=== PATIENT | female | born 1965 | race Caucasian/White ===

== ENCOUNTER 2016-09-23 08:09 | Emergency (ER) | payer BC ==
[2016-09-23] MEDS ORDERED: Ondansetron INJ* 2 MG/ML VIAL IV ONE (08:44)
[2016-09-23] MEDS ORDERED: NS 0.9% 1000 ML* 2,000 ML IV ONE (08:44)
[2016-09-23 08:56] LABS: Hematocrit 44 % (35-47); Hemoglobin 14.6 g/dl (12.0-16.0); Mean Corpuscular HGB Conc 33 g/dl (31-36); Mean Corpuscular Hemoglobin 31 pg (27-31); Mean Corpuscular Volume 94 fL (80-97); Mean Platelet Volume 8 um3 (7.4-10.4); Red Blood Count 4.67 10^6/ul (4.0-5.4); Red Cell Distribution Width 16 % (10.5-15); White Blood Count 8.2 10^3/ul (3.5-10.8)
[2016-09-23 09:09] LABS: ALT 8 U/L (7-52); AST 16 U/L (13-39); Albumin 3.8 g/dL (3.2-5.2); Alkaline Phosphatase 61 U/L (34-104); Anion Gap 3 mmol/L (2-11); BUN/Creatinine Ratio 13.3 (8-20); Blood Urea Nitrogen 8 mg/dL (6-24); C Reactive Protein < 1.00 mg/L (< 5.00); CO2 Carbon Dioxide 26 mmol/L (22-32); Calcium 8.8 mg/dL (8.6-10.3); Chloride 106 mmol/L (101-111); Globulin 2.7 g/dL (2-4); Glucose 89 mg/dL (70-100); Lipase 35 U/L (11.0-82.0); Potassium 4.1 mmol/L (3.5-5.0); Sodium 135 mmol/L (133-145); Total Protein 6.5 g/dL (6.4-8.9)
[2016-09-23] MEDS ORDERED: Iodixanol* (CONTRAST) 320 MG/ML 100 ML SDV IV ONE (09:18)
--- NOTE | 2016-09-23 10:18 | RAD ---
CLINICAL HISTORY: Epigastric pain COMPARISON: None TECHNIQUE: Multiple contiguous axial CT scans were obtained of the abdomen and pelvis after the administration of intravenous contrast. Coronal and sagittal multiplanar reformations are submitted for review. Oral contrast was administered. Delayed images were obtained through the abdomen and pelvis. FINDINGS: LUNG BASES: The lung bases are clear. LIVER: The liver is diffusely low in attenuation compared to the spleen. There are no focal hepatic parenchymal masses. BILE DUCTS: There is no intrahepatic or extrahepatic biliary dilatation. GALLBLADDER: The gallbladder is normal, without pericholecystic inflammatory change. PANCREAS: The pancreas is normal, without mass or ductal dilatation. SPLEEN: Normal in size and appearance. UPPER GI TRACT: Evaluation of the gastrointestinal tract is limited by incomplete gastric distention. There is postsurgical change to the upper GI tract. SMALL BOWEL AND MESENTERY: The patient appears to be status post jejunojejunostomy with a patulous loop of small bowel at the area of anastomosis of the left upper quadrant. Elsewhere, the small bowel is unremarkable without findings to suggest obstruction. COLON: The colon is normal in contour, course, caliber. There is no pericolonic inflammatory change. There is a tubular, vermiform, hollow viscus that is blind ending, and originates from the cecum, consistent with a normal appendix. There is no periappendiceal inflammatory change. ADRENALS: Normal bilaterally. KIDNEYS: The kidneys are normal in shape, size, contour, and axis. There is no hydronephrosis or nephrolithiasis. BLADDER: The bladder is smooth in contour. PELVIC ORGANS: The uterus and adnexa are grossly normal for technique. AORTA: The aorta is normal. IVC: Unremarkable LYMPH NODES: There is no lymphadenopathy by size criteria. ABDOMINAL WALL: There is no evidence for abdominal wall hernia. BONES AND SOFT TISSUES: Degenerative changes are noted along the spine OTHER: None IMPRESSION: POSTSURGICAL CHANGE. FATTY LIVER. NO ACUTE CT PATHOLOGY OF THE VISUALIZED PORTION OF THE ABDOMEN AND PELVIS
[2016-09-23 11:24] LABS: Urine Bacteria Absent (Absent); Urine Bilirubin Negative (Negative); Urine Glucose Negative (Negative); Urine Nitrite Negative (Negative)
--- NOTE | 2016-09-23 12:59 | ED ---
Charlette Bowie Claudia, scribed for Jon Smith MD on 09/23/16 at 0817 . Complex/Multi-Sys Presentation - HPI Summary HPI Summary: 51 year old female presents to the ED with abd pain of 4/10 and N/V. Pt notes gradual onset yesterday 09/22/16. She notes intermittent Sx of abd cramping/pain in the epigastrium with NV. She denies fever, chills but admits to decreased oral intake due to pain. Pt notes eating and bouts of emesis aggravate abd pain.. PMHx of Gastric Bypass 4 years ago is noted. Pt notes that she tried to eat yesterday afternoon around 1700 and had a bout of emesis shortly after. Pt notes that she had an appetite yesterday evening but has been unable to eat without emesis. She also notes additional burping since yesterday pm. She notes nml yesterday am and nml BM yesterday but none last night or this am. She also admits to minimal gas distally. PSHx: Tubal Ligation - History Of Current Complaint Chief Complaint: EDAbdPain Time Seen by Provider: 09/23/16 08:15 Hx Obtained From: Patient Onset/Duration: Gradual Onset - since yesterday 09/22/16, Lasting Days Timing: Constant Associated Signs And Symptoms: Positive: Nausea, Vomiting, Abdominal Pain, Decreased Oral Intake - Allergies/Home Medications Allergies/Adverse Reactions: Allergies Allergy/AdvReac Type Severity Reaction Status Date / Time seafood Allergy Mild Rash Uncoded 09/23/16 09:02 PMH/Surg Hx/FS Hx/Imm Hx Previously Healthy: Yes Endocrine/Hematology History: Denies: Hx Diabetes Cardiovascular History: Denies: Hx Myocardial Infarction - Surgical History Surgery Procedure, Year, and Place: Gastric Bypass - 4 years ago [facility] [place] Tubal Ligation Infectious Disease History: Denies: Traveled Outside the [place] in Last 30 Days - Family History Known Family History: Positive: Cardiac Disease, Hypertension Family History: COPD - Social History Occupation: Unemployed Lives: With Family Alcohol Use: Rare Substance Use Type: Reports: None Review of Systems Constitutional: Other - decreased oral intake Negative: Fever, Chills Eyes: Negative ENT: Negative Cardiovascular: Negative Respiratory: Negative Positive: Abdominal Pain, Vomiting, Nausea Genitourinary: Negative Musculoskeletal: Negative Skin: Negative Neurological: Negative Psychological: Normal All Other Systems Reviewed And Are Negative: Yes Physical Exam Triage Information Reviewed: Yes Vital Signs On Initial Exam: Initial Vitals Temp Pulse Resp BP Pulse Ox 97.7 F 55 20 114/66 99 09/23/16 08:10 09/23/16 08:10 09/23/16 08:10 09/23/16 08:10 09/23/16 08:10 Vital Signs Reviewed: Yes Appearance: Positive: Pain Distress - mild-moderate pain distress. Negative: Well-Appearing - mildly ill-appearing Skin: Positive: Warm, Skin Color Reflects Adequate Perfusion, Dry Head/Face: Positive: Normal Head/Face Inspection Eyes: Positive: EOMI, ANGELITO ENT: Positive: Normal ENT inspection Neck: Positive: Supple, Nontender Respiratory/Lung Sounds: Positive: Clear to Auscultation, Breath Sounds Present Cardiovascular: Positive: RRR Abdomen Description: Positive: Soft. Negative: Nontender - tender at the epigastrium Bowel Sounds: Positive: Present - high pitched bowel sounds Musculoskeletal: Positive: Normal, Strength/ROM Intact Neurological: Positive: Normal, Sensory/Motor Intact, Alert, Oriented to Person Place, Time Psychiatric: Positive: Affect/Mood Appropriate Diagnostics - Vital Signs Vital Signs Temp Pulse Resp BP Pulse Ox 09/23/16 08:10 97.7 F 55 20 114/66 99 - Laboratory Lab Results: Lab Results 09/23/16 09/23/16 09/23/16 Range/Units 08:35 08:35 08:35 WBC 8.2 (3.5-10.8) 10^3/ul RBC 4.67 (4.0-5.4) 10^6/ul Hgb 14.6 (12.0-16.0) g/dl Hct 44 (35-47) % MCV 94 (80-97) fL MCH 31 (27-31) pg MCHC 33 (31-36) g/dl RDW 16 H (10.5-15) % Plt Count 203 (150-450) 10^3/ul MPV 8 (7.4-10.4) um3 Neut % (Auto) 67.1 (38-83) % Lymph % (Auto) 21.2 L (25-47) % Crane % (Auto) 7.1 (1-9) % Eos % (Auto) 3.3 (0-6) % Baso % (Auto) 1.3 (0-2) % Absolute Neuts (auto) 5.5 (1.5-7.7) 10^3/ul Absolute Lymphs (auto) 1.8 (1.0-4.8) 10^3/ul Absolute Monos (auto) 0.6 (0-0.8) 10^3/ul Absolute Eos (auto) 0.3 (0-0.6) 10^3/ul Absolute Basos (auto) 0.1 (0-0.2) 10^3/ul Absolute Nucleated RBC 0.01 10^3/ul Nucleated RBC % 0.1 INR (Anticoag Therapy) 0.90 (0.89-1.11) APTT 29.1 (26.0-36.3) seconds Sodium 135 (133-145) mmol/L Potassium 4.1 (3.5-5.0) mmol/L Chloride 106 (101-111) mmol/L Carbon Dioxide 26 (22-32) mmol/L Anion Gap 3 (2-11) mmol/L BUN 8 (6-24) mg/dL Creatinine 0.60 (0.51-0.95) mg/dL Est GFR ( Amer) 135.0 (>60) Est GFR (Non-Af Amer) 105.0 (>60) BUN/Creatinine Ratio 13.3 (8-20) Glucose 89 (70-100) mg/dL Lactic Acid (0.5-2.0) mmol/L Calcium 8.8 (8.6-10.3) mg/dL Total Bilirubin 0.40 (0.2-1.0) mg/dL AST 16 (13-39) U/L ALT 8 (7-52) U/L Alkaline Phosphatase 61 (34-104) U/L Troponin I 0.00 (<0.04) ng/mL C-Reactive Protein < 1.00 (< 5.00) mg/L Total Protein 6.5 (6.4-8.9) g/dL Albumin 3.8 (3.2-5.2) g/dL Globulin 2.7 (2-4) g/dL Albumin/Globulin Ratio 1.4 (1-3) Lipase 35 (11.0-82.0) U/L Urine Color Urine Appearance Urine pH (5-9) Ur Specific [place] (1.010-1.030) Urine Protein (Negative) Urine Ketones (Negative) Urine Blood (Negative) Urine Nitrate (Negative) Urine Bilirubin (Negative) Urine Urobilinogen (Negative) Ur Leukocyte Esterase (Negative) Urine WBC (Auto) (Absent) Urine RBC (Auto) (Absent) Ur Squamous Epith Cells (Absent) Urine Bacteria (Absent) Urine Glucose (Negative) 09/23/16 09/23/16 Range/Units 08:35 11:10 WBC (3.5-10.8) 10^3/ul RBC (4.0-5.4) 10^6/ul Hgb (12.0-16.0) g/dl Hct (35-47) % MCV (80-97) fL MCH (27-31) pg MCHC (31-36) g/dl RDW (10.5-15) % Plt Count (150-450) 10^3/ul MPV (7.4-10.4) um3 Neut % (Auto) (38-83) % Lymph % (Auto) (25-47) % Crane % (Auto) (1-9) % Eos % (Auto) (0-6) % Baso % (Auto) (0-2) % Absolute Neuts (auto) (1.5-7.7) 10^3/ul Absolute Lymphs (auto) (1.0-4.8) 10^3/ul Absolute Monos (auto) (0-0.8) 10^3/ul Absolute Eos (auto) (0-0.6) 10^3/ul Absolute Basos (auto) (0-0.2) 10^3/ul Absolute Nucleated RBC 10^3/ul Nucleated RBC % INR (Anticoag Therapy) (0.89-1.11) APTT (26.0-36.3) seconds Sodium (133-145) mmol/L Potassium (3.5-5.0) mmol/L Chloride (101-111) mmol/L Carbon Dioxide (22-32) mmol/L Anion Gap (2-11) mmol/L BUN (6-24) mg/dL Creatinine (0.51-0.95) mg/dL Est GFR ( Amer) (>60) Est GFR (Non-Af Amer) (>60) BUN/Creatinine Ratio (8-20) Glucose (70-100) mg/dL Lactic Acid 0.4 L (0.5-2.0) mmol/L Calcium (8.6-10.3) mg/dL Total Bilirubin (0.2-1.0) mg/dL AST (13-39) U/L ALT (7-52) U/L Alkaline Phosphatase (34-104) U/L Troponin I (<0.04) ng/mL C-Reactive Protein (< 5.00) mg/L Total Protein (6.4-8.9) g/dL Albumin (3.2-5.2) g/dL Globulin (2-4) g/dL Albumin/Globulin Ratio (1-3) Lipase (11.0-82.0) U/L Urine Color Yellow Urine Appearance Clear Urine pH 7.0 (5-9) Ur Specific [place] 1.006 L (1.010-1.030) Urine Protein Negative (Negative) Urine Ketones Negative (Negative) Urine Blood 3+ H (Negative) Urine Nitrate Negative (Negative) Urine Bilirubin Negative (Negative) Urine Urobilinogen Negative (Negative) Ur Leukocyte Esterase Negative (Negative) Urine WBC (Auto) Absent (Absent) Urine RBC (Auto) 3+(>10/hpf) H (Absent) Ur Squamous Epith Cells Present H (Absent) Urine Bacteria Absent (Absent) Urine Glucose Negative (Negative) Result Diagrams: 09/23/16 08:35 09/23/16 08:35 Lab Statement: Any lab studies that have been ordered have been reviewed, and results considered in the medical decision making process. - CT CT ABD/PELVIS CT Interpretation: No Acute Changes - POSTSURGICAL CHANGE. FATTY LIVER. NO ACUTE CT PATHOLOGY OF THE VISUALIZED PORTION OF THE ABDOMEN AND PELVIS CT Interpretation Completed By: Radiologist Complex Multi-Symp Course/Dx Course Of Treatment: NO CRITICAL CARE TIME. Assessment/Plan: IMPROVED IN ED. SURGERY/DR RENEE SAW PATIENT IN ED. DISACHARGE HOME STABLE. - Diagnoses Provider Diagnoses: Abdominal pain, Vomiting - Physician Notifications Discussed Care Of Patient With: Dr. Renee recommends a CT ABD with contrast. Post CT and evaluation of the pt surgery recommends trying chau-derek and crackers. Surgery mid-level checks in with pt and informs pt and family of plan. Time Discussed With Above Provider: 08:46 Discharge - Discharge Plan Condition: Stable Disposition: HOME Patient Education Materials: Abdominal Pain (ED) Referrals: Fazal Marquez MD [Primary Care Provider] - Camilo Sousa MD [Medical Doctor] - Additional Instructions: FOLLOW UP WITH YOUR DOCTOR. RETURN TO THE EMERGENCY DEPARTMENT FOR ANY WORSENING OF YOUR CONDITION; PAIN, FEVER, VOMITING, YOU FEEL ILL OR QUESTIONS OR CONCERNS. The documentation as recorded by the Charlette allred Claudia accurately reflects the service I personally performed and the decisions made by me, Jon Smith MD.
[2016-09-23 13:11] VITALS: BP 119/68
--- NOTE | 2016-09-23 19:26 | CONS ---
CONSULTATION REPORT: DATE OF CONSULT: 09/23/16 PATIENT OF: Dr. Michel Orozco (dictated by ANNIE Daniels). CONSULTED BY: Dr. Jon Smith. CONSULTED TO: Dr. Michel Orozco. CHIEF COMPLAINT: 1. Epigastric pain. 2. Nausea and vomiting. HISTORY OF PRESENT ILLNESS: Ms. Cadet is a pleasant 51-year-old female, who presented to the emergency room earlier this morning with complaints of epigastric abdominal pain since last night. She notes that her pain started approximately at 6 o'clock yesterday that was gradual in onset, but has gotten progressively worse as the night went. She has never had similar complaints in the past. She described it as an intermittent episode of abdominal cramping, with sharp, stabbing periods as well with associated nausea and vomiting. She had a muffin that she bought from work yesterday evening after which she immediately experienced some abdominal discomfort followed by nausea and vomiting. Two hours later, she tried to eat dinner, but unfortunately she experienced the same symptoms and was unable to keep it down. She did not eat or drink anything the remainder of the night. She got up this morning and she tried to eat some breakfast, but unfortunately she experienced the same symptoms and throwing up as well for which she went to the emergency room for further evaluation. She described it as dull aching pain, localized to the epigastric and left upper quadrant area with no radiation of pain or any other associated symptoms. The patient is known to our practice from prior laparoscopic Hammad-en-Y gastric bypass that was done approximately [address] Sousa. The patient has done very well since her bypass losing approximately 75 pounds. She has been relatively healthy prior to her episode of abdominal pain with nausea and vomiting last night. She described only some issues with anemia for which she had extensive evaluation last fall including an EGD that failed to reveal any evidence of GI bleeding or peptic ulcer disease. She denies any NSAIDs intake or history of peptic ulcer disease. As a matter of fact, the patient has been maintained on proton pump inhibitors, since her surgery, given her known history of GERD. She has been on iron supplement since her diagnosis was anemia last fall and denies any fatigue, chest pain, or shortness of breath. She admits to her abdominal pain, but denies any fever, chills, or recent changes in the bowel habits or bleeding per rectum. Given her ongoing symptoms, she went this morning to the emergency room for further evaluation. She had laboratory workup and CT scan of the abdomen and pelvis that revealed no apparent internal hernia or any other abnormalities. We were asked to see the patient for further evaluation regarding her abdominal pain. PAST MEDICAL HISTORY: Significant for GERD as well as an anxiety. PAST SURGICAL HISTORY: Significant for laparoscopic Hammad-en-Y gastric bypass approximately 4 years ago, as well as tubal ligation in the remote past. CURRENT MEDICATIONS: Her current medications at home include: 1. Omeprazole 40 mg p.o. daily. 2. Venlafaxine 75 mg p.o. daily. ALLERGIES: She denies any drug allergies; however, she cannot tolerate any sea foods. FAMILY HISTORY: She denies any family history of GI malignancies. SOCIAL HISTORY: The patient is a nonsmoker. Denies alcohol intake and caffeine intake is minimal. 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 REVIEW OF SYSTEMS: See HPI, otherwise negative. She denies any headache, dizziness, or blurred vision. No chest pain, shortness of breath, palpitation, or orthopnea. No fever, chills, or recent weight loss. She admits to epigastric abdominal pain with associated nausea and vomiting, but denies any jaundice, changes in the color of stool or urine, or bleeding per rectum. No flank pain, dysuria, hematuria, or urinary frequency. PHYSICAL EXAM: General: She is a pleasant, healthy-appearing middle-aged female, in no acute distress or discomfort at the time of consultation. Vitals : Her last set of vitals revealed temperature of 97.7, blood pressure of 112/72 , respirations of 20, pulse of 52, and O2 sat is 100% on room air. HEENT: Sclerae anicteric, PERRLA. EOMs intact. Oropharynx is pink and moist with no exudate. Neck: Supple. Trachea midline. No cervical adenopathy or thyromegaly. Lungs: Clear to auscultation bilaterally. Heart: Regular rate and rhythm. Normal S1 and S2 without rubs, murmurs, or gallops. Back: With normal curvature. No CVA tenderness. Breast Exam: Deferred at this time. Abdomen: Soft and nondistended. There is very mild epigastric and left upper quadrant tenderness on deep palpation. There is no guarding, rigidity, or rebound tenderness noted. No hernias, masses, or hepatosplenomegaly. Old scars from prior Hammad-en-Y bypass surgery noted and well healed. Extremities: Without cyanosis, clubbing, or edema. Neurologic: Grossly intact. Rectal Exam : Deferred at this time. LABORATORY DATA: CBC during her ED stay this morning with white count of 8200, hemoglobin 14.6, hematocrit 44, and platelets of 203. Chemistry with sodium of 135, potassium of 4.1, chloride 106, CO2 26, BUN of 8, creatinine of 0.6, glucose of 89. Her lactic acid was 0.4. Her LFTs and lipase were all within normal limits. ACCESSORY DIAGNOSTIC DATA: The patient had a CT scan of the abdomen and pelvis this morning that revealed no acute pathology of the visualized portion of the abdomen and pelvis. ASSESSMENT: A 51-year-old female, status post laparoscopic Hammad-en-Y gastric bypass 4 years ago, who presents to the emergency room today with less than 24 hours' period of intermittent epigastric pain, nausea, and vomiting with food consumption. PLAN: At the time of consultation, the patient appears to be very comfortable on her bed in the ED. I went on and discussed with her the findings of her labs , CT scan, and physical exam. She appears to be doing well and there was no evidence of any acute abdomen or any abnormality at this time. I suspect that she had some sort of gastroenteritis or viral enteritis given her food intake that led to her symptoms to begin with. I discussed the case with Dr. Orozco and we will give her a trial of liquid diet during her ED stay. If she is able to tolerate liquid diet and crackers down, we will likely discharge her home on some Zofran to use as needed for nausea. I also advised her to take it easy on her diet and to follow bland diet rules for the next 2 days until she feels better. She was also encouraged to return if she felt any worse and otherwise, she will follow up with Dr. Sousa next week in the office as an outpatient. Again, there was no evidence of any acute abdomen or surgical issues at this time. We will follow her up accordingly. ADDENDUM: I have personally visited patient in ED. I have reviewed the CT scan and examined patient. I have discussed situation with her, and feel she is safe for discharge, but will call immediately if anything is amiss. D/W Dr Sousa. Any Orozco MD ANNIE DANIELS CC: Dr. Fazal Marquez; Dr. Camilo Sousa* [id number]/[facility] #: [id number] [facility]
== END 2016-09-23 13:10 | disposition home or self-care (01) ==
LOC: ED 08:09
DX: R10.13 Epigastric pain (principal); R11.2 Nausea with vomiting, unspecified; Z98.84 Bariatric surgery status; K21.9 Gastro-esophageal reflux disease without esophagitis; F41.9 Anxiety disorder, unspecified
CPT/HCPCS: 36415; 74177; 80053; 81003; 81015; 83605; 83690; 84484; 85025; 85610; 85730; 86140; 86803; 96360; 96374; 99283; J2405; Q9967

== ENCOUNTER → 2016-10-26 18:16 | Emergency (ER) | payer BC ==
[~2016-10-26 18:16] MED LIST: Iodixanol* (CONTRAST) 320 MG/ML 100 ML SDV IV ONE; NS 0.9% 1000 ML* 1,000 ML IV ONE
[2016-10-26 21:34] LABS: Hematocrit 49 % (35-47); Hemoglobin 15.9 g/dl (12.0-16.0); Mean Corpuscular HGB Conc 33 g/dl (31-36); Mean Corpuscular Hemoglobin 31 pg (27-31); Mean Corpuscular Volume 95 fL (80-97); Mean Platelet Volume 8 um3 (7.4-10.4); Red Blood Count 5.09 10^6/ul (4.0-5.4); Red Cell Distribution Width 15 % (10.5-15); White Blood Count 8.7 10^3/ul (3.5-10.8)
[2016-10-26 21:50] LABS: Albumin 4.2 g/dL (3.2-5.2); BUN/Creatinine Ratio 17.8 (8-20); Calcium 8.8 mg/dL (8.6-10.3); EGFR African American 107.7 (>60); EGFR Non-African American 83.7 (>60); Globulin 3.4 g/dL (2-4); Potassium 3.5 mmol/L (3.5-5.0); Total Bilirubin 0.3 mg/dL (0.2-1.0); Total Protein 7.6 g/dL (6.4-8.9)
--- NOTE | 2016-10-26 22:34 | RAD ---
INDICATION: Left upper quadrant pain. COMPARISON: CT abdomen pelvis 2016 TECHNIQUE: Axial source images were obtained from the hemidiaphragms to the symphysis pubis following administration of oral and intravenous contrast. 92 mL Omnipaque 300 was utilized. Coronal and sagittal reconstructed images were acquired. Lung bases: The lung bases are clear. Liver: The liver is mildly generous in size and there is mild hepatic steatosis. There are no masses. There is no ductal dilatation. Gallbladder: There are no calcified gallstones. There is no evidence of wall thickening or pericholecystic fluid. Spleen: The spleen is normal in size. There are no masses. Pancreas: There is no focal pancreatic mass or ductal dilatation. Adrenal glands: There is no evidence of adrenal mass. Kidneys: The kidneys are normal in size and position. There are prompt nephrograms and there is prompt excretion bilaterally. There are no renal parenchymal masses. There is no evidence of nephrolithiasis. Adenopathy: There is no evidence of adenopathy by size criteria. Fluid collections: There are no free or localized fluid collections. Vessels:There are no significant atherosclerotic changes involving the aorta. There is no focal aneurysm. The iliac vessels are normal in caliber. The IVC appears normal. GI tract: There are no acute CT bowel findings. There is no obstruction. There is bariatric surgery. The stomach and small bowel otherwise appear normal. The lower GI tract is normal. The cecum, ileocecal valve, and terminal ileum appear normal. The appendix is visualized and appear normal. Pelvic organs: The uterus and adnexa appear normal Bladder: There are no bladder masses. Abdominal and pelvic soft tissues: The extraperitoneal abdominal and pelvic soft tissues appear normal.. Osseous structures: There are no acute osseous findings. Other: None IMPRESSION: GASTRIC BYPASS. NO ACUTE FINDINGS.
[2016-10-27 00:55] VITALS: BP 106/57
--- NOTE | 2016-10-27 05:47 | ED ---
I, Oh,Renetta, scribed for Maurizio Carroll MD on 10/26/16 at 2037 . Abdominal Pain/Female - HPI Summary HPI Summary: This 51 y/o female presents to ED for burning epigastric pain since 2 days ago. Pain radiates to back. Pt specifies that the pain is located over gastric bypass incision over left epigastric region, and reports chronic abdominal "bulge" around epigastric region. Lifting things make pain worse. Negative black bowel movement. Pt currently takes iron. The abd procedure Rou-en-Y was done by Dr. Sousa in August 2011. PMHx includes DM type II, ALVA with CPAP, and thyroid disease. - History of Current Complaint Chief Complaint: EDAbdPain Stated Complaint: LUMP ON ABD Time Seen by Provider: 10/26/16 19:59 Hx Obtained From: Patient, Medical Records Onset/Duration: Sudden Onset, Resolved Timing: Constant Pain Intensity: 0 Pain Scale Used: 0-10 Numeric Location: Discrete At: LUQ, Epigastric Radiates: Yes Radiates to: Back Character: Burning Aggravating Factor(s): Movement - lifting Alleviating Factor(s): Position, Other: - rest Associated Signs and Symptoms: Negative: Fever, Nausea, Vomiting, Diarrhea Allergies/Adverse Reactions: Allergies Allergy/AdvReac Type Severity Reaction Status Date / Time seafood Allergy Mild Rash Uncoded 09/23/16 09:02 PMH/Surg Hx/FS Hx/Imm Hx Endocrine/Hematology History: Denies: Hx Diabetes Cardiovascular History: Denies: Hx Hypertension, Hx Myocardial Infarction - Surgical History Surgery Procedure, Year, and Place: Gastric [place] [facility] [place] Infectious Disease History: No Infectious Disease History: Denies: Traveled Outside the [place] in Last 30 Days - Family History Known Family History: Positive: Cardiac Disease, Hypertension Family History: COPD - Social History Alcohol Use: Rare Hx Substance Use: No Substance Use Type: Reports: None Hx Tobacco Use: Yes Smoking Status (MU): Heavy Every Day Tobacco Smoker Review of Systems Negative: Fever Negative: Photophobia, Erythema Negative: Sore Throat Negative: Palpitations, Chest Pain Negative: Shortness Of Breath, Cough Positive: Abdominal Pain - epigastric pain, left sided. Negative: Vomiting, Diarrhea, Nausea Negative: dysuria, hematuria Negative: Arthralgia, Myalgia Negative: Rash Neurological: Other - Negative for dizziness Negative: Headache Negative: Anxious, Depressed All Other Systems Reviewed And Are Negative: Yes Physical Exam - Summary Physical Exam Summary: Constitutional: Well-developed, Well-nourished, Alert. (-) Distressed Skin: Warm, Dry. Incision noted over LUQ. HENT: Normocephalic; Atraumatic Eyes: Conjunctiva normal Neck: Musculoskeletal ROM normal neck. (-) JVD, (-) Stridor, (-) Tracheal deviation Cardio: Rhythm regular, rate normal, Heart sounds normal; Intact distal pulses; The pedal pulses are 2+ and symmetric. Radial pulses are 2+ and symmetric. (-) Murmur Pulmonary/Chest wall: Effort normal. (-) Respiratory distress, (-) Wheezes, (-) Rales Abd: Soft, (-) Tenderness, (-) Distension, (-) Guarding, (-) Rebound. (-) Hernia palpated. Musculoskeletal: (-) Edema Lymph: (-) Cervical adenopathy Neuro: Alert, Oriented x3 Psych: Mood and affect Normal Triage Information Reviewed: Yes Vital Signs On Initial Exam: Initial Vitals Temp Pulse Resp BP Pulse Ox 98.0 F 65 16 113/64 98 10/26/16 18:51 10/26/16 18:51 10/26/16 18:51 10/26/16 18:51 10/26/16 18:51 Vital Signs Reviewed: Yes Diagnostics - Vital Signs Vital Signs Temp Pulse Resp BP Pulse Ox 10/26/16 20:07 98 F 65 16 113/64 98 10/26/16 18:51 98.0 F 65 16 113/64 98 - Laboratory Result Diagrams: 10/26/16 21:20 10/26/16 21:20 Lab Statement: Any lab studies that have been ordered have been reviewed, and results considered in the medical decision making process. - CT Ab/P CT Interpretation: No Acute Changes - Gastric bypass. No acute finding. CT Interpretation Completed By: Radiologist Re-Evaluation - Re-Evaluation First Eval Re-Evaluation Time: 23:18 Comment: in room to share CT scan results. Plan of care is discussed. Pt is strongly advised to follow up post-op with surgeon to r/o any possible complication after gastric bypass. Abdominal Pain Fem Course/Dx - Course Course Of Treatment: Dx: incision pain. Not able to reproduce the hernia. Do not suspect calcerated and strangulated hernia. not able to valsalva, - Diagnoses Provider Diagnoses: Incisional pain, Abdominal pain - Provider Notifications Discussed Care Of Patient With: Dr. Ruiz (Surgery) paged at 0024 AM Discharge - Discharge Plan Condition: Stable Disposition: HOME Patient Education Materials: Abdominal Pain (ED) Referrals: Fazal Marquez MD [Primary Care Provider] - Laura Ruiz MD [Medical Doctor] - 2 Days Additional Instructions: RETURN TO THE EMERGENCY DEPARTMENT FOR CHANGING OR WORSENING SYMPTOMS. The documentation as recorded by the [facility] allred Soohyun accurately reflects the service I personally performed and the decisions made by , Maurizio Carroll MD.
== END | disposition home or self-care (01) ==
LOC: ED 18:16
DX: T81.89XA Other complications of procedures, not elsewhere classified, initial encounter (principal); R10.13 Epigastric pain; E11.9 Type 2 diabetes mellitus without complications; G47.33 Obstructive sleep apnea (adult) (pediatric); F17.200 Nicotine dependence, unspecified, uncomplicated; Z98.84 Bariatric surgery status
CPT/HCPCS: 36415; 74177; 80053; 83605; 85027; 96360; 99282; Q9967

== ENCOUNTER 2017-01-25 19:58 | Emergency (ER) | payer BC ==
[2017-01-25 20:06] VITALS: BP 102/65
--- NOTE | 2017-01-25 20:23 | UC ---
Lower Extremity/Ankle HPI - HPI Summary HPI Summary: left leg pain, no trauma, began today radiates through calf and up to thigh--- - History of Current Complaint Chief Complaint: UCLowerExtremity Stated Complaint: FOOT PAIN Time Seen by Provider: 01/25/17 20:15 Hx Obtained From: Patient Hx Last Menstrual Period: 01/19/17 ?: No Onset/Duration: Sudden Onset, Lasting Hours, Still Present Severity Initially: Moderate Severity Currently: Moderate Pain Intensity: 6 Pain Scale Used: 0-10 Numeric Aggravating Factor(s): Standing, Ambulation Alleviating Factor(s): Nothing Able to Bear Weight: Yes - Allergies/Home Medications Allergies/Adverse Reactions: Allergies Allergy/AdvReac Type Severity Reaction Status Date / Time seafood Allergy Mild Rash Uncoded 01/25/17 20:06 Home Medications: Home Medications ALPRAZolam TAB* [Xanax TAB*] 0.25 mg PO Q6H PRN 01/25/17 [History Confirmed ] Ascorbic Acid [Vitamin C] 250 mg PO 01/25/17 [History] Multivit-Min W/Fe-FA [ and Iron] 1 tab PO 01/25/17 [History] PMH/Surg Hx/FS Hx/Imm Hx Previously Healthy: No Endocrine History: Diabetes GI/ History: Gastroesophageal Reflux Psychological History: Depression - Surgical History Surgical History: Yes Surgery Procedure, Year, and Place: Gastric Bypass - 4 years ago [facility]. Tubal Ligation - Family History Known Family History: Positive: Cardiac Disease, Hypertension Family History: COPD - Social History Occupation: Employed Full-time Lives: With Family Alcohol Use: Rare Substance Use Type: None Smoking Status (MU): Heavy Every Day Tobacco Smoker Type: Cigarettes Amount Used/How Often: 1 1/2 ppd Have You Smoked in the Last Year: Yes Review of Systems Constitutional: Negative Skin: Negative Eyes: Negative ENT: Negative Respiratory: Negative Cardiovascular: Negative Gastrointestinal: Negative Genitourinary: Negative Motor: Negative Neurovascular: Negative Musculoskeletal: Negative, Myalgia - left calf and thigh Neurological: Negative Psychological: Negative All Other Systems Reviewed And Are Negative: Yes Physical Exam Triage Information Reviewed: Yes Appearance: Well-Appearing, No Pain Distress, Well-Nourished Vital Signs: Initial Vital Signs Temp 97.7 F 01/25/17 20:01 Pulse 76 01/25/17 20:01 Resp 18 01/25/17 20:01 BP 102/65 01/25/17 20:01 Pulse Ox 99 01/25/17 20:01 Vital Signs Reviewed: Yes Eye Exam: Normal Eyes: Positive: Conjunctiva Clear ENT Exam: Normal ENT: Positive: Normal ENT inspection, Hearing grossly normal. Negative: Nasal congestion, Nasal drainage, Trismus, Muffled/hoarse voice Dental Exam: Normal Neck exam: Normal Neck: Positive: 1 Respiratory Exam: Normal Respiratory: Positive: Chest non-tender, Lungs clear, Normal breath sounds, No respiratory distress, No accessory muscle use Cardiovascular Exam: Normal Cardiovascular: Positive: RRR, No Murmur, Pulses Normal, Brisk Capillary Refill Musculoskeletal Exam: Normal Musculoskeletal: Positive: Strength Intact, ROM Intact, No Edema Neurological Exam: Normal Neurological: Positive: Alert, Muscle Tone Normal Psychological Exam: Normal Skin Exam: Normal Lower Extremity Course/Dx - Course Course Of Treatment: to ed emergency department fo further evaluation - Differential Dx/Diagnosis Differential Diagnosis/HQI/PQRI: Contusion, Gout Provider Diagnoses: left leg pain Discharge - Discharge Plan Condition: Stable Disposition: HOME Patient Education Materials: How to Stop Smoking (ED), Leg Pain (ED) Referrals: Fazal Marquez MD [Primary Care Provider] - Additional Instructions: We recommend that you go to the emergency department for further evaluation of a traumatic leg pain
== END 2017-01-25 21:19 | disposition home or self-care (01) ==
LOC: UCEAST 19:58
DX: M79.605 Pain in left leg (principal); Z91.013 Allergy to seafood; E11.9 Type 2 diabetes mellitus without complications; K21.9 Gastro-esophageal reflux disease without esophagitis; F32.9 Major depressive disorder, single episode, unspecified; Z98.84 Bariatric surgery status; F17.210 Nicotine dependence, cigarettes, uncomplicated
CPT/HCPCS: 99211; G0463

== ENCOUNTER → 2017-01-25 21:18 | Emergency (ER) | payer BC ==
[2017-01-25 21:27] VITALS: BP 124/70
== END | disposition left against medical advice (07) ==
LOC: ED 21:18
DX: M25.572 Pain in left ankle and joints of left foot (principal); Z53.21 Procedure and treatment not carried out due to patient leaving prior to being seen by health care provider

== ENCOUNTER → 2018-12-03 11:01 | Day surgery (SDC) | payer BC, OTHER ==
--- NOTE | 2018-12-02 15:11 | HP ---
HISTORY AND PHYSICAL: DATE OF ADMISSION/SURGERY: 12/03/18 ATTENDING SURGEON: Rupa Santos MD* (dictated by ANNIE Carpenter). PROCEDURE: Right small finger metacarpal open reduction and internal fixation. HISTORY OF PRESENT ILLNESS: Cydney is a right hand dominant 53-year-old female presenting today for a right hand 5th metacarpal fracture. She was injured at work on 11/23/18 when she was using a reamer and it caught and spun, hitting her hand. She did break the skin over the injury site. She went to the [facility] and had x-rays done and was placed in a splint. She rates her pain as a 5/10. She is unable to make a full fist and when she tries, her 5th finger rotates laterally. She denies numbness. She admits to tingling in the 5th finger. She denies fevers, chills, shortness of breath, chest pain. PAST MEDICAL HISTORY: Type 2 diabetes, GERD, COPD, anxiety, depression, anemia , thyroid disease, arthritis, fibromyalgia, colitis, and cirrhosis. PAST SURGICAL HISTORY: Tubal ligation in 1985, gastric bypass in 2011, and a D and C ablation in 2019. MEDICATIONS: 1. TGT Nicotine Step One 21 mg for 24 hours, use generic as directed for 1 month. 2. Effexor XR 150 mg 1 tab p.o. daily. 3. Omeprazole 40 mg 1 p.o. daily. 4. Ferrous sulfate 325 mg 1 p.o. daily. 5. vitamin 1 p.o. daily. 6. Vitamin C 1 gummy daily. 7. Aleve 220 mg as needed. 8. Diclofenac sodium 1% use as directed 2 times a day. 9. Alprazolam 0.25 mg take 1 tablet p.o. twice a day. 10. Calcium 500 plus D3 1 p.o. daily. 11. [place] 3 one p.o. daily. 12. Ibuprofen 600 mg every 6 hours as needed. 13. Ropinirole HCl 1 mg 1 p.o. daily at bedtime. 14. Norethindrone acetate 5 mg 1 p.o. daily. ALLERGIES: No known drug allergies. FAMILY HISTORY: Positive for coronary artery disease, hypertension, and cancer. SOCIAL HISTORY: Cydney lives at home with her spouse. 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 She is smoker, trying to quit, smokes 1 and a half packs per day x30 years. She denies recreational drug use. She drinks 2 alcoholic beverages per week. She is right handed. REVIEW OF SYSTEMS: General: Negative for fevers, chills, night sweats, unexplained weight loss or gain. No known anesthesia problems. HEENT: Negative for headache, lightheadedness, syncopal episodes, visual changes. Integumentary: Positive for a lesion over the right 5th metacarpal. Negative for abrasions. Cardiothoracic: Negative for hypertension, chest pain, palpitations, edema. Respiratory: Positive for chronic cough and shortness of breath with exertion. Negative for wheezing. GI: Positive for constipation. Negative for nausea, vomiting, diarrhea, and GERD. : Negative for urinary frequency, urgency, history of UTIs, or kidney problems. Musculoskeletal: Positive for current complaint and chronic back pain. Negative for history of fractures. Neurological: Negative for paresthesia, numbness, history of stroke , seizure, poor balance. Negative for anxiety, depression. Endocrine: Positive for diabetes and thyroid disease. Hematologic: Positive for easy bruising and anemia. Negative for bleeding disorders or history of DVT. ID: Negative for history of MRSA, hep C, HIV. PHYSICAL EXAMINATION GENERAL: Well-developed, well-nourished 53-year-old female, in no acute distress, appropriate mood and affect. VITAL SIGNS: Height 60 inches, weight 165 pounds, pulse 74, BP 132/76, respirations 12. Pain level 5. BMI 32.4. HEENT: Normocephalic, atraumatic. PERRLA. Extraocular movement intact. NECK: Supple. No palpable lymph nodes. Throat is clear. PULMONARY: Lungs are clear to auscultation bilaterally. No wheezes, rales, or rhonchi. CARDIO: Regular rate and rhythm. S1 and S2 normal. No murmurs, rubs, or gallops. No edema. ABDOMEN: Positive bowel sounds. Soft and nontender. NEUROLOGIC: A and O x3. Cranial nerves II through XII intact. Sensation is intact to light touch. MUSCULOSKELETAL: Right upper extremity, diffuse swelling of her hand and wrist with dorsal and palmar bruising and abrasion over the 5th metacarpal that has began to scab over. Tenderness to palpation of the 5th metacarpal. She is able to flex and extend all digits. She could touch each finger to her thumb. She has decreased utility aide strength. Her 5th finger rotates laterally when she attempts to make a full fist. Sensation to light touch is intact distally. Radial pulses 2+. DIAGNOSTIC STUDIES: Right hand radiographs reviewed from [facility] show evidence of a displaced 5th metacarpal fracture. IMPRESSION: Right 5th metacarpal fracture. PLAN: The patient is scheduled to undergo a right small finger open reduction and internal fixation with Dr. Rupa Santos on 11/30/18. Dr. Santos went over the procedure as well as the risks and benefits with the patient and she elected to proceed. She will return to the office in 10 days postop for followup and suture removal. Prescription for tramadol was e-scribed to the patient's pharmacy for postoperative pain management. ANNIE MATUTE [id number]/[facility] #: [id number] FRANDY
[~2018-12-03 11:01] MED LIST changes: +Acetaminophen TAB* 325 MG PO PRN; +Buffered Lidocaine 1% SYRIN* 1 ML/SYRINGE INTRADERM ONE; +Bupivacaine 0.5%* 50 ML VIAL ONE; +Dexamethasone IV* 4 MG/ML 1 ML (4 MG) ONE; +DiMENhydriNATE IV* 50 MG/ML VIAL IV PUSH PRN; -Iodixanol* (CONTRAST) 320 MG/ML 100 ML SDV IV ONE; +Ketorolac INJ* 30 MG/ML 1 ML VIAL IV PRN; +Ketorolac INJ* 30 MG/ML 1 ML VIAL ONE; +Lactated Ringers 1000 ML Bag* 1,000 ML IV SCH; +Lidocaine 2% PF * 5 ML VIAL ONE; +Midazolam* 1 MG/ML 2 ML VIAL (2 MG) ONE; -NS 0.9% 1000 ML* 1,000 ML IV ONE; +Naloxone* 0.4 MG/ML 1 ML VIAL IV PRN; +Ondansetron INJ* 2 MG/ML VIAL ONE; +Propofol* 10 MG/ML 20 ML BTL ONE; +ceFAZolin 2 GM in NS PREMIX(*) 2 GM/100 ML BAG IVPB ONE; +fentaNYL* 50 MCG/ML 2 ML VIAL (100 MCG VIAL) IV PRN; +fentaNYL* 50 MCG/ML 2 ML VIAL (100 MCG VIAL) ONE; +oxyCODONE/Acetamin 5/325 MG* TAB ONE
[2018-12-03] MEDS: oxyCODONE/Acetamin 5/325 MG* TAB PO PRN ×2 (15:54→16:20)
--- NOTE | 2018-12-03 15:58 | OP ---
DATE OF OPERATION: 12/03/18 - [facility] DATE OF : 63 SURGEON: Rupa Santos MD. CONVENTION SERVICES DIRECTOR: ANNIE Armijo. ANESTHESIA: General. PRE-OP DIAGNOSIS: Right fifth metacarpal fracture. POST-OP DIAGNOSIS: Right fifth metacarpal fracture. OPERATIVE PROCEDURE: Open reduction and internal fixation of the right fifth metacarpal fracture. ESTIMATED BLOOD LOSS: Zero. TOURNIQUET TIME: Approximately 15 minutes. INDICATIONS FOR PROCEDURE: Cydney is a 53-year-old woman who suffered a fracture of her right fifth metacarpal; it is mid shaft; it was from a direct blow. The injury occurred at work. She presents for ORIF of the right fifth metacarpal. DESCRIPTION OF PROCEDURE: The patient was brought to the operating room, was given a general anesthetic and placed in the supine position on the operating table with a tourniquet around her right upper arm. The skin of her right upper extremity was prepped and draped in the usual sterile fashion. The hand and forearm were exsanguinated and the tourniquet elevated to 250 mmHg. The fracture was reduced with traction and manipulation and then a guidewire from the INnate intramedullary screw was passed through the distal fragment across the fracture site and into the proximal fragment. The position of the guidewire was checked on the C-arm in the AP and lateral views and found to be satisfactory. A small incision was made at the entry site of the guidewire and then the drill was used to over drill across the fracture site. A 35 mm screw was placed in the intramedullary canal and its position was checked on the C- arm in the AP and lateral views. The guidewire was removed. The wound was irrigated and the skin edges reapproximated with 4-0 nylon suture. The wound was dressed with Xeroform, 4x4, Webril, and an Colby wrap. The patient tolerated the procedure well and was brought to the recovery room in good condition. [id number]/[facility] #: [id number] MTDD
[2018-12-03 16:35] VITALS: BP 101/80
== END | disposition home or self-care (01) ==
LOC: OR 11:01
PROVIDERS: ATTEND Orthopaedic Surgery
DX: S62.326A Displaced fracture of shaft of fifth metacarpal bone, right hand, initial encounter for closed fracture (principal); W22.8XXA Striking against or struck by other objects, initial encounter; Y93.89 Activity, other specified; Y92.89 Other specified places as the place of occurrence of the external cause; Y99.0 Civilian activity done for income or pay; E11.9 Type 2 diabetes mellitus without complications; Z72.0 Tobacco use; G47.33 Obstructive sleep apnea (adult) (pediatric); F41.8 Other specified anxiety disorders; R00.2 Palpitations; I49.3 Ventricular premature depolarization
CPT/HCPCS: 76000; A9270-GY; C1776; J0690; J1100; J1885; J2250; J2405; J2704; J3010; J3490

== ENCOUNTER 2019-08-15 07:59 | Day surgery (SDC) | payer OTHER ==
--- NOTE | 2019-07-29 13:25 | HP ---
CC: ANNIE Kruger * ADMISSION HISTORY AND PHYSICAL: DATE OF ADMISSION: 08/15/19 ATTENDING SURGEON: Dr. Camilo Sousa * (ANNIE Willams dictating). CHIEF COMPLAINT: Left upper quadrant incisional hernia. HISTORY OF PRESENT ILLNESS: This is a 53, soon to be a 54-year-old female who is status post laparoscopic Hammad-en-Y gastric bypass in 2011. For the past few years, she has noticed increased discomfort in the area of one of the left upper quadrant incisions that is occasionally associated with eating though also sometimes associated with activity including bending. She notes discomfort both in the area of the left upper quadrant incision, but also over the left lower anterior chest wall. She sometimes reports severe pain, again related to bending or other activity. This is often relieved by changing position or massage. She has also noted some periodic increase in her chronic low back pain. She underwent CT scan on 07/06/19, which did not show hernia or any other masses. Dr. Sousa has reviewed her history and workup. By his exam on 07/01/19, he felt that there was a nontender palpable subcutaneous mass in the left upper quadrant incision, which was most likely consistent with hernia at the trocar site. He has reviewed with her the indications, risks, benefits and alternatives and she would like to proceed and schedule with robotic repair of left upper quadrant incisional hernia with mesh. She also understands that he may explore the area in an open fashion though there appear to be 2 separate areas of symptomatology, one related to the abdomen and the other to the lower anterior chest wall. She will discuss these clarifications with Dr. Sousa on the day of surgery. PAST MEDICAL HISTORY: 1. Chronic back pain. 2. History of morbid obesity (status post gastric bypass). 3. Restless leg syndrome. 4. Diet-controlled diabetes. 5. Bipolar disorder. 6. Seasonal affective disorder. 7. 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 PAST SURGICAL HISTORY: Previous surgeries include: 1. Laparoscopic Hammad-en-Y gastric bypass. 2. Tubal ligation. 3. Prior D and C and cervical ablation. 4. Right hand surgery, 2019. CURRENT MEDICATIONS: 1. Effexor XR 150 mg once daily. 2. Omeprazole 40 mg once daily. 3. Ropinirole 1 mg at h.s. p.r.n. restless legs. 4. Multivitamin once daily. 5. Ferrous sulfate once daily. 6. Vitamin C once daily. 7. Calcium and vitamin D once daily. 8. Rock[place]-3 supplement once daily. 9. Probiotic 2 tablets once daily. 10. Magnesium oxide 400 mg once daily. 11. Alprazolam 0.25 mg p.r.n. (uses infrequently). 12. Ibuprofen 600 mg up to b.i.d. p.r.n. or Aleve 1 tablet 1 to 2 times per week p.r.n. joint pain. DRUG ALLERGIES: Possibly IV CONTRAST (mouth itching). FAMILY HISTORY: Negative for anesthesia problems, bleeding or clotting disorders. SOCIAL HISTORY: The patient is . 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 She is a current smoker of 2 packs per day, but is attempting to taper and eventually quit. She drinks up to 6 drinks in 1 sitting, but only may be 1 to 2 times per month. (She is advised to moderate her alcohol intake). She denies any other recreational drug use. REVIEW OF SYSTEMS: General: No recent constitutional symptoms or acute illnesses. She states that her weight is up somewhat over the past year possibly as much as 19 pounds. HEENT: No problems reported. Cardiovascular: She was seen recently by Dr. Verdugo on 07/18/19 (see attached note). Respiratory: Smoking history as noted, otherwise no significant shortness of breath and a chronic cough. GI: As above per HPI. No lower GI symptoms. : No symptoms reported. Endocrine: She is a diet-controlled diabetic and has not required medication since her bypass surgery. She is scheduled for a thyroid ultrasound on 07/29/19. She says that she has had some thyroid nodules and believes that she may be hypothyroid, though does not know the specific results from recent lab work and that is not immediately available to me. PHYSICAL EXAMINATION GENERAL: Well-nourished, somewhat obese female in no acute distress. VITAL SIGNS: Height 5 feet 1 inches, weight 179 pounds. Blood pressure 120/64 , pulse 60, respirations 18. HEENT: Pupils are equal, round, and reactive. EOMs intact. No conjunctival pallor. Oropharynx: Teeth in good repair. No intraoral lesions. NECK: No definite thyroid masses or thyromegaly. No palpable lymphadenopathy. LUNGS: Clear to auscultation. No rales or wheezes. HEART: Irregularly irregular rhythm consistent with bigemini. No murmur noted. BREASTS: Not examined. ABDOMEN: Well-healed laparoscopic incisions, soft, nontender to palpation with minimally tender area in the left upper quadrant deep to one of the laparoscopic incision sites. It is less noticeable when she is supine. She does have some tenderness over the left lower anterior costal edge, but without definitive mass palpable. GENITALIA: Not done. RECTAL: Not done. BACK: No spinous process and CVA tenderness. EXTREMITIES: No edema. NEUROLOGICAL: Grossly intact. SKIN: Warm and dry. No suspicious rashes or lesions noted. IMPRESSION: Incisional hernia. PLAN: Robotic repair of incisional hernia with mesh. ANNIE WILLAMS [id number]/[facility] #: [id number] MTDBrannon
[~2019-08-15 07:59] MED LIST changes: -Acetaminophen TAB* 325 MG PO PRN; -Bupivacaine 0.5%* 50 ML VIAL ONE; -Dexamethasone IV* 4 MG/ML 1 ML (4 MG) ONE; -DiMENhydriNATE IV* 50 MG/ML VIAL IV PUSH PRN; -Ketorolac INJ* 30 MG/ML 1 ML VIAL IV PRN; -Ketorolac INJ* 30 MG/ML 1 ML VIAL ONE; -Lidocaine 2% PF * 5 ML VIAL ONE; -Midazolam* 1 MG/ML 2 ML VIAL (2 MG) ONE; -Naloxone* 0.4 MG/ML 1 ML VIAL IV PRN; -Ondansetron INJ* 2 MG/ML VIAL ONE; -Propofol* 10 MG/ML 20 ML BTL ONE; -ceFAZolin 2 GM in NS PREMIX(*) 2 GM/100 ML BAG IVPB ONE; -fentaNYL* 50 MCG/ML 2 ML VIAL (100 MCG VIAL) IV PRN; -fentaNYL* 50 MCG/ML 2 ML VIAL (100 MCG VIAL) ONE; -oxyCODONE/Acetamin 5/325 MG* TAB ONE
[2019-08-15] MEDS ORDERED: ceFAZolin 2 GM PREMIX in ORs 2 GM/50 ML BAG ONE (08:20)
[2019-08-15] MEDS ORDERED: Ondansetron INJ* 2 MG/ML VIAL ONE (08:33)
[2019-08-15] MEDS ORDERED: Ketorolac INJ* 30 MG/ML 1 ML VIAL ONE (08:33)
[2019-08-15] MEDS ORDERED: Dexamethasone IV* 4 MG/ML 1 ML (4 MG) ONE (08:33)
[2019-08-15] MEDS ORDERED: Sugammadex * 200 MG/2 ML VIAL IV PUSH ONE (08:33)
[2019-08-15] MEDS ORDERED: Midazolam* 1 MG/ML 2 ML VIAL (2 MG) ONE (08:33)
[2019-08-15] MEDS ORDERED: Rocuronium* 10 MG/ML VIAL ONE (08:33)
[2019-08-15] MEDS ORDERED: Glycopyrrolate IV* 0.2 MG/ML 1 ML VIAL ONE (08:33)
[2019-08-15] MEDS ORDERED: Propofol* 10 MG/ML 20 ML BTL ONE (08:33)
[2019-08-15] MEDS ORDERED: fentaNYL* 50 MCG/ML 2 ML VIAL (100 MCG VIAL) ONE (08:33)
[2019-08-15] MEDS ORDERED: Bupivacaine 0.25% SDV* 30 ML ONE (09:03)
[2019-08-15] MEDS ORDERED: Succinylcholine* 20 MG/ML 10 ML VIAL ONE (09:14)
[2019-08-15 09:39] LABS: TSH (Thyroid Stimulating Horm) 3.25 mcIU/mL (0.34-5.60)
[2019-08-15 09:41] LABS: Free T3 3.6 pg/mL (2.5-3.9); Free T4 0.82 ng/dL (0.61-1.12)
[2019-08-15] MEDS ORDERED: Naloxone* 0.4 MG/ML 1 ML VIAL IV PRN (10:04)
[2019-08-15 11:57] VITALS: BP 102/73
--- NOTE | 2019-08-17 10:27 | OP ---
CC: ANNIE Kruger * DATE OF OPERATION: 08/16/19 - [facility] DATE OF : 63 SURGEON: Camilo Sousa MD FAMILY MEDIATOR: Liane Penaloza NP ANESTHESIOLOGIST: Dr. Silvestre. ANESTHESIA: General endotracheal. PRE-OP DIAGNOSES: Left upper quadrant incisional hernia and lipoma, left upper quadrant. POST-OP DIAGNOSIS: Lipoma, left upper quadrant. OPERATIVE PROCEDURE: Excision of the lipoma, left upper quadrant of the abdomen and diagnostic laparoscopy. ESTIMATED BLOOD LOSS: Minimal. IV FLUIDS: Crystalloid. SPECIMEN: Lipoma. DRAINS: None. COMPLICATIONS: None. COUNTS: The instrument, needle and sponge counts correct. DESCRIPTION OF PROCEDURE: The patient was brought to the operating room and placed on the table in supine. Sequential compression devices were placed on both lower extremities and general anesthesia was administered. The abdomen was prepped and draped in the usual sterile fashion and a time-out was performed. Local anesthetic was infiltrated through the skin and soft tissue prior to making each incision. First the subcutaneous lipoma in the left upper quadrant was addressed. After injecting anesthetic and making a transverse incision, sharp and blunt dissection was used to dissect out the lipoma which was approximately 3 cm x 3 cm x 2 cm. The peritoneal cavity was then entered using an 8 mm optical trocar in the left upper quadrant. After insufflating carbon dioxide to a pressure of 15 mmHg, an additional 8 mm trocar was placed in the left mid abdomen. Her laparoscope was introduced and inspection of the left upper quadrant revealed no evidence of hernias. Entire abdominal wall surveyed , no hernias were identified. Due to the patient's complaint of left upper quadrant abdominal pain and a history of prior gastric bypass, a survey of the abdomen was performed. The liver appeared normal. Left lobe was elevated and the gastric pouch was identified. The Hammad limb was followed from the gastrojejunostomy distally and the small bowel appeared normal without any evidence of abnormal dilation. There was normal orientation of the biliopancreatic limb and no evidence of defect at the mesentery at this site. The small bowel was run distally all the way to the ileocecal valve and all appeared normal. There were no other significant findings. At this point, the operation was concluded. The portion removed under direct visualization and carbon dioxide was released. Skin incisions were all closed with 4-0 Monocryl subcuticular fashion and DermaFlex applied to the wounds. The patient tolerated this procedure well, was extubated uneventfully and transferred to recovery room in stable condition. [id number]/[facility] #: [id number] FRANDY
== END 2019-08-15 11:25 | disposition home or self-care (01) ==
LOC: OR 07:59
PROVIDERS: ATTEND Surgery
DX: D17.1 Benign lipomatous neoplasm of skin and subcutaneous tissue of trunk (principal); E11.8 Type 2 diabetes mellitus with unspecified complications; F31.9 Bipolar disorder, unspecified; G47.33 Obstructive sleep apnea (adult) (pediatric); K21.9 Gastro-esophageal reflux disease without esophagitis; J44.9 Chronic obstructive pulmonary disease, unspecified; G25.81 Restless legs syndrome; I49.3 Ventricular premature depolarization; F17.210 Nicotine dependence, cigarettes, uncomplicated; Z98.84 Bariatric surgery status; Z68.35 Body mass index [BMI] 35.0-35.9, adult; Z91.041 Radiographic dye allergy status
CPT/HCPCS: 36415; 83036; 84439; 84443; 84481; 88304; J0330; J0690; J1100; J1885; J2250; J2405; J2704; J3010; J3490

== ENCOUNTER 2023-12-29 17:53 | Inpatient (IN) ==
[2023-12-29 19:23] LABS: ABS Basophils 0.1 10^3/uL (0.0-0.1); ABS Eosinophils 0.1 10^3/uL (0.0-0.5); ABS Lymphocytes 0.4 10^3/uL (1.0-4.8); ABS Monocytes 0.4 10^3/uL (0.0-0.9); Eosinophil % 2.2 %; Hematocrit 36.6 % (35-45); Hemoglobin 12.1 g/dL (11.5-14.3); Lymphocyte % 8.5 %; Mean Corpuscular Hemoglobin 31.9 pg (27-33); Mean Corpuscular Hgb Conc 32.9 g/dL (31-36); Mean Corpuscular Volume 96.9 fL (80-97); Mean Platelet Volume 7.1 fL (7.5-11.2); Platelet Count 241 10^3/uL (150-450); Red Blood Count 3.78 10^6/uL (3.63-4.92); White Blood Count 5.1 10^3/uL (3.8-11.8)
[2023-12-29 19:25] LABS: Urine Appearance Clear; Urine Bilirubin Negative (Negative); Urine Blood Negative (Negative); Urine Color Colorless; Urine Glucose Negative (Negative); Urine Ketones Negative (Negative); Urine Nitrite Negative (Negative); Urine Protein Negative (Negative); Urine Specific Gravity 1.004 (1.002-1.030); Urine Urobilinogen Negative (Negative)
[2023-12-29 20:07] LABS: ALT 5 U/L (7-52); AST 12 U/L (13-39); Acetaminophen < 15 mcg/mL; Albumin 3.7 g/dL (3.2-5.2); Albumin/Globulin Ratio 1.4 (1-3); Alcohol, S < 13 mg/dL (<13); Alkaline Phosphatase 86 U/L (35-149); Anion Gap 9 mmol/L (2-16); Blood Urea Nitrogen 10 mg/dL (6-24); CO2 Carbon Dioxide 29 mmol/L (22-32); Calcium 8.8 mg/dL (8.6-10.3); Chloride 99 mmol/L (101-111); Creatinine, Serum 0.67 mg/dL (0.51-0.95); Globulin 2.7 g/dL (2-4); Glucose 142 mg/dL (70-100); Potassium 4.5 mmol/L (3.5-5.0); Salicylate < 2.50 mg/dL (<30); Sodium 137 mmol/L (135-145); Total Bilirubin 0.4 mg/dL (0.2-1.0); Total Protein 6.4 g/dL (6.4-8.9); eGFR CKD-EPI 100.6 (>60)
[2023-12-29 20:11] LABS: TSH Ultra Thyroid Stim Horm 0.15 mcIU/mL (0.34-5.60)
[2023-12-29 20:18] LABS: Urine Benzodiazepine Screen Presumptive Positive (None Detect); Urine Cannabinoids Screen None Detected (None Detect); Urine Opiates Screen None Detected (None Detect)
[2023-12-30 02:05] LABS: Free T4 1.07 ng/dL (0.61-1.12)
[2023-12-30] MEDS ORDERED: Al Hydrox/Mg Hydrox/Simet LIQ 30 ML UDC PO PRN (11:14)
[2023-12-31] MEDS: Venlafaxine XR 75 mg PO SCH (07:50)
[2023-12-31 08:19] LABS: HDL Cholesterol 67.5 mg/dL
[2023-12-31] MEDS ORDERED: Venlafaxine XR 75 mg PO SCH (09:00)
[2024-01-01] MEDS: buPROPion SR 100 mg TAB.SR PO ONE (11:57)
[2024-01-01] MEDS: PAIN RELIEVING RUB (MENTHOL/SALICYLATE) 1 APPLIC TUBE TOPICAL PRN (21:30)
[2024-01-04 10:00] VITALS: BP 97/66
== END 2024-01-04 13:10 | disposition home or self-care (01) | DRG 885 ==
LOC: ED 17:53 → EDHOLD 12-30 11:14 → BSU 12-30 15:15
PROVIDERS: ADMIT Psychiatry & Neurology Psychiatry; ATTEND Psychiatry & Neurology Psychiatry